=== PATIENT | female | born 1965 ===

== ENCOUNTER 2017-05-10 13:32 | Emergency (ER) | payer OTHER ==
[2017-05-10 13:50] VITALS: BP 110/71; PULSE 74; TEMP 98.4; O2SAT 98
--- NOTE | 2017-05-10 14:02 | C.PDOC ---
History Of Present Illness RASH, ITCH L ARM, LOWER LEG X 2 DAYS. UNK CAUSE. LIMITED RELIEF W BENADRYL. DENIES OTHER ASSOC SX. EXAM NONTOXIC HEENT NO ANGIOEDEMA, NO STRIDOR SKIN +HIVES L ARM W OCC EXCORIATION. NO CELLULITIS REMAINDE RNEG Time Seen by Provider: 05/10/17 13:50 Chief Complaint (Nursing): Abnormal Skin Integrity History Per: Patient History/Exam Limitations: no limitations Onset/Duration Of Symptoms: Days Current Symptoms Are (Timing): Still Present Severity: Moderate Past Medical History Reviewed: Historical Data, Nursing Documentation, Vital Signs Vital Signs: Last Vital Signs Temp 98.4 F 05/10/17 13:48 Pulse 74 05/10/17 13:48 Resp 16 05/10/17 14:31 BP 110/71 05/10/17 13:48 Pulse Ox 98 05/10/17 14:54 - Medical History PMH: No Chronic Diseases Surgical History: No Surg Hx Family History: States: No Known Family Hx - Social History Hx Alcohol Use: No Hx Substance Use: No Review Of Systems Except As Marked, All Systems Reviewed And Found Negative. Musculoskeletal: Negative for: Arm Pain, Leg Pain Skin: Positive for: Rash (left arm and lower leg), Other (itching on left arm and lower leg) Physical Exam - Physical Exam Appears: Non-toxic Skin: Normal Color, Warm, Other (hives in left arm with occassional excoriation , no cellulitis) Head: Atraumatic, Normacephalic, Other (no angioedema) Eye(s): bilateral: Normal Inspection, PERRL Ear(s): Bilateral: Normal Nose: Normal Throat: Normal, No Erythema, No Exudate, Other (no stridor) Neurological/Psych: Oriented x3, Normal Speech, Normal Cognition, Normal Motor, Normal Sensation ED Course And Treatment O2 Sat by Pulse Oximetry: 98 (RA) Pulse Ox Interpretation: Normal Disposition Counseled Patient/Family Regarding: Diagnosis, Need For Followup, Rx Given - Disposition Referrals: [facility] [Outside] [facility] [Outside] Disposition: HOME/ ROUTINE Disposition Time: 14:00 Condition: IMPROVED Prescriptions: predniSONE [Prednisone] 60 mg PO DAILY #12 tab Instructions: Urticaria (ED) Forms: [employer] (Upper Sorbian) Print Language: IVORIAN - Clinical Impression Clinical Impression: Hives - Scribe Statement The provider has reviewed the documentation as recorded by the Scribe Elise Richter Provider Attestation: All medical record entries made by the Scribe were at my direction and personally dictated by me. I have reviewed the chart and agree that the record accurately reflects my personal performance of the history, physical exam, medical decision making, and the department course for this patient. I have also personally directed, reviewed, and agree with the discharge instructions and disposition.
[2017-05-10 14:32] VITALS: RESP 16
== END 2017-05-10 14:31 | disposition home or self-care (01) ==
LOC: C.ER 13:32
DX: L50.9 Urticaria, unspecified (principal)